=== PATIENT | female | born 1980 | race Caucasian/White ===

== ENCOUNTER 2025-02-28 11:10 | Outpatient (CLI) | payer MEDICARE, OTHER, SELFPAY | END 2025-02-28 11:11 | disposition home or self-care (01) | LOC: NFLDREF 03-02 18:58 | PROVIDERS: PCP Family Medicine; Referring Provider Family Medicine; Visit Provider Family Medicine | DX: R53.83 Other fatigue (principal); E55.9 Vitamin D deficiency, unspecified; Z13.9 Encounter for screening, unspecified; Z13.6 Encounter for screening for cardiovascular disorders | CPT/HCPCS: 80048; 80061; 80076; 82306; 85025 ==

== ENCOUNTER 2025-03-22 18:54 | Outpatient (CLI) | payer MEDICARE, OTHER, SELFPAY ==
--- NOTE | 2025-03-22 19:20 | CRLHL7_ITS ---
For Patients: As a result of the Century Cures Act, medical imaging exams and procedure reports are released immediately into your electronic medical record. You may view this report before your referring provider. If you have questions, please contact your health care provider. INDICATION: BILATERAL SCREENING MAMMOGRAM, ASYMPTOMATIC 44 Y/O FEMALE COMPARISON: 08/15/2023, 07/23/2023 TECHNIQUE: Digital mammogram in CC and MLO projections including computer-aided detection (CAD) and tomosynthesis. BREAST COMPOSITION: The breasts are extremely dense, which lowers the sensitivity of mammography. FINDINGS: No suspicious findings. ASSESSMENT: BI-RADS 2 Benign RECOMMENDATION: Annual screening mammogram. A lay language report of this examination will be provided to the patient. Dictated by: Colin Muñoz MD @ 03/23/2025 10:01:32 (Electronically Signed)
== END 2025-03-22 18:55 | disposition home or self-care (01) ==
LOC: MAMMO 18:55
PROVIDERS: PCP Family Medicine; Visit Provider Family Medicine
DX: Z12.31 Encounter for screening mammogram for malignant neoplasm of breast (principal); R92.343 Mammographic extreme density, bilateral breasts
CPT/HCPCS: 77063; 77067